=== PATIENT | male | born 1975 | race Caucasian/White ===

== ENCOUNTER → 2017-01-02 | Outpatient (CLI) | payer OTHER ==
[~2017-01-02] MED LIST: E-Z PAQUE 60% w/v SUSP 355ML BOTTLE As Ordered ONE; E-Z-GAS II EFFERVESCENT PACKET (SODIUM BICARB./CITRIC ACID/SIMETHICONE) As Ordered ONE; E-Z-HD 98% w/w 340GM SUSP BTL As Ordered ONE
--- NOTE | 2017-01-02 11:23 | REP ---
DOUBLE CONTRAST ESOPHAGRAM: HISTORY: Gastroesophageal reflux disease. The patient reports episodic esophageal obstructive symptoms. 49 seconds of fluoroscopy is utilized. The study includes a director building view of the chest, four fluoroscopic last image hold spot views, and 19 standard spot images. FINDINGS: PA director building view of the chest is normal. Double contrast views of the esophagus show no evidence of esophageal stricture or mass lesion. There are some tertiary esophageal contractions and contractility is noted in the muscularis mucosa on several views of the esophagus. This "feline esophagus" pattern is associated with reflux or eosinophilic esophagitis. Mild gastroesophageal reflux was observed in this patient. No extrinsic mass effect is seen. The oropharyngeal phase of barium swallow was observed on fluoroscopy and recorded on rapid sequence spot radiographs. Phonation views and swallowing views are normal. With recumbent imaging, there is a sliding type hiatal hernia noted. IMPRESSION: Mild gastroesophageal reflux and sliding type hiatal hernia seen with the patient recumbent. Feline esophagus appearance may left esophagitis. Signed by Dani Fonseca MD 01/03/2017 07:29 A
== END ==
LOC: M RAD 08:35
PROVIDERS: ATTEND Otolaryngology
DX: K21.9 Gastro-esophageal reflux disease without esophagitis (principal); K44.9 Diaphragmatic hernia without obstruction or gangrene

== ENCOUNTER → 2018-10-25 | Outpatient (CLI) | payer OTHER ==
[~2018-10-25] MED LIST changes: +CONRAY-43 43% 50ML VIAL (Q9960) As Ordered ONE; -E-Z PAQUE 60% w/v SUSP 355ML BOTTLE As Ordered ONE; -E-Z-GAS II EFFERVESCENT PACKET (SODIUM BICARB./CITRIC ACID/SIMETHICONE) As Ordered ONE; -E-Z-HD 98% w/w 340GM SUSP BTL As Ordered ONE; +PROHANCE 279.3MG/ML 5ML VIAL (A9576) As Ordered ONE
--- NOTE | 2018-10-25 10:16 | REP ---
MR ARTHROGRAPHY RIGHT SHOULDER: With pre- and post intra-articular gadolinium enhanced saline injected imaging: HISTORY: Right shoulder pain times 1 year. No comparison radiographs. TECHNIQUE: The injection procedure is performed and dictated separately. Pre and post intra-articular gadolinium enhanced saline injected imaging is acquired. Imaging planes include axial, oblique coronal, oblique sagittal and ABER projection images. T1- and t2-weighted scans are included with and without fat saturation. MRI FINDINGS: Cortical and medullary bone signal intensity are normal. Glenohumeral and acromioclavicular joint alignment is normal. There is a subacromial subdeltoid bursal effusion. There is osteoarthritic hypertrophy at the AC joint with AC joint fluid and minimal marrow edema in the distal clavicle. There is inferior spurring of the distal clavicle at the AC joint. There is some minimal inferolateral spurring of the acromion process. Oblique coronal T1- and T2-weighted scans demonstrate significant abnormal signal intensity in the supraspinatus tendon consistent with advanced diffuse tendinosis. There are foci of focal T2 hyperintensity in the substance of the tendon consistent with focal supraspinatus cuff tear, probably full-thickness at approximately 11-o'clock on the humeral head on the oblique coronal T2-weighted scans. There is also focal T2 signal hyperintensity at the distal attachment of the supraspinatus. No retraction is seen. No muscle atrophy is apparent. Also noted is T2 hyperintense fluid undermining the posterior cartilaginous labrum on pre-injection imaging consistent with a posterior labral cartilage tear. Post injection imaging shows good filling enhancement of the articulation. Posterior cartilaginous labral tear is confirmed. Nondisplaced. No loose body is appreciated. There is some irregularity or fraying of the anterior labrum. Post injected oblique coronal T1 fat sat image demonstrates intrasubstance gadolinium enhancement in the supraspinatus tear but no communication with the subacromial bursa consistent with partial thickness rotator cuff lesions. The infraspinatus, subscapularis, and biceps tendons appear intact. Superior labrum appears intact. IMPRESSION: 1. Extensive tendinosis in the supraspinatus with two focal T2 hyperintense partial-thickness cuff tears synovial surface. 2. Subacromial subdeltoid bursal effusion. 3. AC joint osteoarthritis and acromion process spurring. 4. Posterior cartilaginous labral tear nondisplaced. Electronically Signed by Dani Fonseca MD 10/25/2018 11:28 A
--- NOTE | 2018-10-26 10:52 | REP ---
Procedure: Right shoulder arthrogram The procedure was performed under the direct supervision of Dr. Fonseca. History: Right shoulder pain The benefits and risks including but not limited to pain, infection, bleeding and anaphylaxis were explained to the patient and informed consent was obtained. Technique: The right glenohumeral joint space was localized using fluoroscopic guidance. The skin was prepped and draped in a sterile fashion. 1% lidocaine was used as a local anesthetic. Using fluoroscopic guidance a 22 gauge spinal needle was inserted and advanced into the joint. 0.5 ml of Conray 43 was injected to verify placement. 11 ml of a solution containing 20 ml of sterile saline and 0.15 ml of ProHance was injected into the joint. The needle was removed and the patient was taken to MRI for postprocedural imaging. The patient tolerated the procedure well and there were no immediate complications. Less than 6 seconds of fluoro time was utilized for this procedure. Reviewed by DINESH Chapman 10/26/2018 10:14 A Electronically Signed by Dani Fonseca MD 10/26/2018 10:43 A
== END ==
LOC: M RADPRO 06:20
PROVIDERS: ATTEND Family Medicine
DX: M75.21 Bicipital tendinitis, right shoulder (principal); M75.52 Bursitis of left shoulder; M19.011 Primary osteoarthritis, right shoulder; M75.81 Other shoulder lesions, right shoulder
CPT/HCPCS: 23350; 73223; 77002; A9576; Q9960

== ENCOUNTER → 2018-12-11 | Outpatient (REF) ==
--- NOTE | 2018-12-12 03:05 | REP ---
Clinical: Pain. Technique: AP, lateral, bilateral oblique and sunrise views. Findings: The osseous structures and joint spaces are intact and normal. There is no evidence for acute fracture or dislocation. No joint effusion is appreciated. Surrounding soft tissues are unremarkable. No subcutaneous emphysema or radiodense foreign body. Impression: Normal examination. No acute fracture or dislocation. Electronically Signed by Ga Tolentino MD 12/12/2018 02:56 A
--- NOTE | 2018-12-12 04:15 | REP ---
Clinical: Right shoulder pain . Technique: Internal rotation, external rotation, and Y view. Findings: No acute fracture or dislocation. The acromioclavicular and glenohumeral joints are intact and essentially normal for age. No overt degenerative changes are appreciated. Subacromial space measures 9 mm. No periarticular calcifications are appreciated. Impression: Normal age-appropriate right shoulder radiographs. Electronically Signed by Ga Tolentino MD 12/12/2018 04:06 A
== END ==
LOC: M SMT 10:54
PROVIDERS: ATTEND Internal Medicine
DX: Z02.89 Encounter for other administrative examinations (principal)

== ENCOUNTER 2024-02-02 08:56 | Day surgery (SDC) | payer OTHER ==
[~2024-02-02] VITALS: Ht 182.9 cm; Wt 106.6 kg
[2024-02-02] MEDS: NS 1,000 ML IV ONE (09:23)
[2024-02-02] MEDS ORDERED: LIDOCAINE 2% 100MG/5ML SDV (FOR ANES.) As Ordered ONE (09:58)
[2024-02-02] MEDS ORDERED: propofoL 200 MG/20 ML VIAL As Ordered ONE (09:58)
[2024-02-02 10:30] VITALS: TEMP 96.1
[2024-02-02 10:55] VITALS: BP 123/71; O2SAT 97
== END 2024-02-02 11:10 | disposition home or self-care (01) ==
LOC: M OPP 08:56
PROVIDERS: ATTEND Internal Medicine Gastroenterology
DX: Z12.11 Encounter for screening for malignant neoplasm of colon (principal); Z80.0 Family history of malignant neoplasm of digestive organs; D12.4 Benign neoplasm of descending colon; D12.3 Benign neoplasm of transverse colon; D12.7 Benign neoplasm of rectosigmoid junction; K64.8 Other hemorrhoids; K64.4 Residual hemorrhoidal skin tags; I10 Essential (primary) hypertension; R12 Heartburn; G47.30 Sleep apnea, unspecified

== ENCOUNTER → 2025-01-09 | Outpatient (CLI) | payer OTHER ==
[2025-01-09 15:44] LABS: ALBUMIN 3.7 G/DL (3.2-5.2); ALKALINE PHOSPHATASE 96 U/L (40-129); ALT/SGPT 38 U/L (7.0-40); AST/SGOT 22 U/L (<34); BILIRUBIN,TOTAL 0.7 MG/DL (0.3-1.2); BLOOD UREA NITROGEN 13 MG/DL (9-23); CALCIUM LEVEL 9.3 MG/DL (8.5-10.1); CARBON DIOXIDE LEVEL 29 MMOL/L (20-31); CHLORIDE LEVEL 104 MMOL/L (98-107); CHOLESTEROL LEVEL 146 MG/DL (<200); CHOLESTEROL RISK RATIO 4.67 (<5); CREATININE FOR GFR 0.94 MG/DL (0.70-1.30); GLOMERULAR FILTRATION RATE > 90.0 (>60); GLUCOSE, FASTING 87 MG/DL (60-100); HDL CHOLESTEROL 31.2 MG/DL (>40); LDL CHOLESTEROL 89.2 MG/DL (<100); NON-HDL-C 114.8 MG/DL; POTASSIUM SERUM 4.6 MMOL/L (3.5-5.1); SODIUM LEVEL 143 MMOL/L (136-145); TOTAL PROTEIN 7.4 G/DL (5.7-8.2); TRIGLYCERIDES LEVEL 128 MG/DL (<150)
== END ==
LOC: M WUC 11:11
PROVIDERS: ATTEND Internal Medicine Cardiovascular Disease
DX: I25.10 Atherosclerotic heart disease of native coronary artery without angina pectoris (principal); I25.83 Coronary atherosclerosis due to lipid rich plaque; E78.5 Hyperlipidemia, unspecified